=== PATIENT | male | born 1970 | race African-American/Black ===

== ENCOUNTER 2020-04-14 18:23 | Inpatient (IN) | payer BC ==
[~2020-04-14] VITALS: Ht 179.1 cm; Wt 118.4 kg
[2020-04-14 20:59] LABS: BASOPHILS % 0.7 % (0.0-2.0); EOSINOPHILS % 0.3 % (0.0-5.0); HEMATOCRIT. 35.7 % (42.0-52.0); HEMOGLOBIN. 11.9 g/dL (14.0-18.0); LYMPHOCYTES % 28.3 % (20.0-50.0); MEAN CORPUSCULAR HEMOGLOBIN 27.4 pg (28.0-32.0); MEAN CORPUSCULAR VOLUME 81.9 fL (80.0-94.0); MEAN PLATELET VOLUME 9.5 fl (7.4-10.4); MONOCYTES % 6.5 % (2.0-8.0); NEUTROPHILS % 64.2 % (40.0-76.0); PLATELET 244 x1000/uL (130-400); RED BLOOD CELL COUNT 4.36 mill/uL (4.7-6.1); RED CELL DISTRIBUTION WIDTH 12.5 % (11.6-14.6)
[2020-04-14 21:12] LABS: CHLORIDE 100 mEq/L (98-107)
[2020-04-14] MEDS ORDERED: DEXAMETHASONE 4MG/ML 1ML VIAL IV ONE (21:15)
[2020-04-15] MEDS ORDERED: DEXAMETHASONE 4MG/ML 1ML VIAL IV SCH (02:00)
[2020-04-15] MEDS: ENOXAPARIN 30MG/0.3ML SYR SUBCUT SCH ×2 (09:00→23:54)
[2020-04-15] MEDS ORDERED: ONDANSETRON HCL 4MG/2ML INJ IV PRN (09:00)
[2020-04-15] MEDS ORDERED: ACETAMINOPHEN 325MG TABLET PO PRN (09:00)
[2020-04-15] MEDS ORDERED: AZITHROMYCIN 500 MG TABLET PO NR (09:00)
[2020-04-15] MEDS ORDERED: CEFTRIAXONE SODIUM 1 G/VIAL ONE (09:36)
[2020-04-15] MEDS: CEFTRIAXONE 1,000 MG in DEXTROSE 5% WATER 50 ML IV SCH (12:00)
[2020-04-15] MEDS: AMLODIPINE 10MG TABLET PO SCH (14:11)
[2020-04-15] MEDS ORDERED: DEXAMETHASONE 2MG TABLET PO SCH (18:30)
[2020-04-15] MEDS: DEXAMETHASONE 4MG TABLET PO SCH (18:48)
[2020-04-15 21:50] VITALS: BP 141/80
[2020-04-15 21:59] LABS: BG BASE EXCESS -0.8 mmol/L (-2.0-2.0); BG CARBOXYHEMOGLOBIN 0.8 % (0.5-1.5); BG DEOXYHEMOGLOBIN 5.8 % (0.0-5.0); BG FRACTION INSPIRED OXYGEN 32; BG HCO3 ACT 23.5 mmol/L (22.0-26.0); BG METHEMOGLOBIN 0.1 % (0.0-1.5); BG OXYGEN SATURATION 94.1 % (92.0-98.5); BG OXYHEMOGLOBIN 93.3 % (94.0-97.0); BG PCO2 37.7 mmHg (35.0-45.0); BG PH 7.412 (7.350-7.450); BG PO2 73.3 mmHg (75.0-100.0); BG SAMPLE SITE ALINE; BG TOTAL HEMOGLOBIN 12.6 g/dL (12.0-18.0); BG VENT MODE NASAL CANNULA
[2020-04-16] VITALS (7 sets, daily range): BP systolic 139–163; BP diastolic 64–93
[2020-04-16 00:45] LABS: *AMPHETAMINES SCREEN URINE NEGATIVE (NEGATIVE); *BARBITURATES SCREEN URINE NEGATIVE (NEGATIVE); *BENZODIAZEPINES SCREEN URINE NEGATIVE (NEGATIVE); *COCAINE SCREEN URINE NEGATIVE (NEGATIVE)
[2020-04-16 00:46] LABS: CANNABINOID URINE SCREEN NEGATIVE (NEGATIVE); METHADONE URINE SCREEN NEGATIVE (NEGATIVE); OPIATES URINE SCREEN NEGATIVE (NEGATIVE); PHENCYCLIDINE URINE SCREEN NEGATIVE (NEGATIVE)
[2020-04-16] MEDS ORDERED: GLIP5TAB12 PO (02:13)
[2020-04-16] MEDS ORDERED: METF-416 PO (02:13)
[2020-04-16] MEDS ORDERED: ATOR10TA69 PO (02:13)
[2020-04-16] MEDS ORDERED: AZITHROMYCIN 250 MG TABLET PO SCH (09:00)
[2020-04-16] MEDS: ENOXAPARIN 30MG/0.3ML SYR SUBCUT SCH (09:29)
[2020-04-16] MEDS: DEXAMETHASONE 4MG TABLET PO SCH (09:29)
[2020-04-16] MEDS: AMLODIPINE 10MG TABLET PO SCH (09:30)
[2020-04-16 10:02] LABS: BG CARBOXYHEMOGLOBIN 0.7 % (0.5-1.5); BG DEOXYHEMOGLOBIN 10.2 % (0.0-5.0); BG FRACTION INSPIRED OXYGEN 21; BG HCO3 ACT 23.7 mmol/L (22.0-26.0); BG METHEMOGLOBIN 0.1 % (0.0-1.5); BG OXYGEN SATURATION 89.7 % (92.0-98.5); BG PCO2 39.4 mmHg (35.0-45.0); BG PH 7.397 (7.350-7.450); BG PO2 57.1 mmHg (75.0-100.0); BG SAMPLE SITE RIGHT RADIAL; BG TOTAL HEMOGLOBIN 11.8 g/dL (12.0-18.0); BG VENT MODE ROOM AIR
[2020-04-16] MEDS: CEFTRIAXONE 1,000 MG in DEXTROSE 5% WATER 50 ML IV SCH (15:15)
[2020-04-16] MEDS ORDERED: AZIT250T12 MT ×2 (15:55→15:57)
[2020-04-16] MEDS ORDERED: DEX4 PO (15:55)
[2020-04-16] MEDS ORDERED: ALBU18HF2 IH ×2 (15:55→15:57)
[2020-04-16] MEDS ORDERED: AMLO10TA80 MT (15:55)
[2020-04-16] MEDS ORDERED: DEXA6TAB MT (15:57)
[2020-04-16] MEDS ORDERED: AMLO10TA80 PO (15:57)
== END 2020-04-16 21:20 | disposition home or self-care (01) | DRG 177 ==
LOC: ER 18:23 → MICUSO 23:11 → EDBEDREQ 23:14 → EDBEDREQTM 23:14 → 7WST 04-15 22:03 → 7EST 04-15 23:50
PROVIDERS: ADMIT Internal Medicine; ATTEND Internal Medicine
DX: U07.1 COVID-19 (principal); J12.89 Other viral pneumonia; J96.01 Acute respiratory failure with hypoxia; E87.1 Hypo-osmolality and hyponatremia; D64.9 Anemia, unspecified; E11.9 Type 2 diabetes mellitus without complications; E66.9 Obesity, unspecified; E78.5 Hyperlipidemia, unspecified; I10 Essential (primary) hypertension; R74.01 Elevation of levels of liver transaminase levels; Z68.36 Body mass index [BMI] 36.0-36.9, adult; Z79.899 Other long term (current) drug therapy
CPT/HCPCS: 36415; 36600; 71045; 80053; 80305; 82375; 82805; 83880; 84484; 85025; 87635; 93005; 96374; 99285; C1893; J0696; J1100; J1650; J7060; J8540